=== PATIENT | female | born 1965 | race Caucasian/White ===

== ENCOUNTER → 2023-07-16 | Outpatient (CLI) | payer BC ==
--- NOTE | 2023-07-24 04:38 | CT ---
EXAMINATION TYPE: CT sinus wo con CT DLP: 596.5 mGycm, Automated exposure control for dose reduction was used. DATE OF EXAM: 07/16/2023 11:44 AM COMPARISON: . CLINICAL INDICATION:Female, 57 years old with history of G50.1 ATYPICAL FACIAL PAIN; , Lt sided facia l pain TECHNIQUE: Multiple thin axial images were obtained through the paranasal sinuses without the use of IV contrast. Additional coronal and sagittal reformatted images were submitted for evaluation. Contrast used: none Oral contrast used: none FINDINGS: Frontal sinuses: Normally developed and aerated. Frontal Recess: Clear Maxillary Sinuses: Normally developed and aerated. A 1.3 cm polyp or mucous retention cyst along the floor of the right maxillary sinus. Maxillary Infundibula([facility]): Ostiomeatal complexes appear patent. There are Eliezer cells seen bilatera lly. Ethmoid sinuses: Normally developed and aerated. Ethmoidal notch: Protected and abutting the lateral lamina. Sphenoid sinuses: Normally developed and aerated. There is complete sellar sphenoid sinus pneumatizat ion without evidence of dehiscence. No dehiscence of carotid canal. No evidence of optic nerve dehis cence within the sphenoid sinus. No evidence of Onodi cells. Sphenoethmoidal recesses: Clear. Nasal septum: Within normal limits.. Nasal Turbinates: Partial steven bullosa on the right, otherwise unremarkable Mastoid air cells & middle ears: The visualized mastoid air cells are clear. The middle ears are tara sly unremarkable. Modified Soft tissues & Brain: Partially seen without gross abnormality. Globes are intact. Other: Cribriform plate demonstrates symmetric Keros classification type 2 cribriform plate. No evidence of bony dehiscence of skull base. Lamina papyracea is intact without evidence of remote orbital fracture or orbital prolapse into the e thmoid sinus. No pneumatization of the niki maggie is seen. IMPRESSION: 1. A 1.3 cm polyp or mucous retention cyst along the floor of the right maxillary sinus. 2. Otherwise no significant mucosal sinus disease. 3. Patent ostiomeatal complexes bilaterally, with small Eliezer cells present.
== END | disposition home or self-care (01) ==
LOC: RADCTMAIN 11:11
PROVIDERS: ATTEND Otolaryngology
DX: J33.8 Other polyp of sinus (principal); G50.1 Atypical facial pain
CPT/HCPCS: 70486